=== PATIENT | male | born 1975 | race African-American/Black ===

== ENCOUNTER 2020-04-06 14:30 | Day surgery (SDC) | payer OTHER ==
[~2020-04-06] VITALS: Ht 182.9 cm; Wt 90.8 kg
[~2020-04-06 14:30] MED LIST: ALPR0.25 PO; B12; CHOL10003 PO; IMIP50TA3 PO; OMEP-110 PO; SILD50TA PO
[2020-04-06 14:56] VITALS: BP 117/75
[2020-04-06 15:00] VITALS: BP 117/75
[2020-04-06] MEDS ORDERED: CHLORHEXIDINE 15 ML UDC ONE (15:06)
[2020-04-06] MEDS ORDERED: SODIUM CHLORIDE 0.9% 1,000 ML IV SCH (15:30)
[2020-04-06] MEDS ORDERED: CHLORHEXIDINE 15 ML UDC MM ONE (15:30)
[2020-04-06] MEDS ORDERED: LACTATED RINGERS 1,000 ML IV SCH (15:30)
[2020-04-06] MEDS ORDERED: MIDAZOLAM 1 MG/ML, 2ML ONE (16:01)
[2020-04-06] MEDS ORDERED: FENTANYL PF 100 MCG/2ML ONE ×2 (16:01→17:43)
[2020-04-06] MEDS ORDERED: LIDOCAINE/PF 1%, 30ML ONE (16:17)
[2020-04-06] MEDS ORDERED: BUPIVACAINE/PF 0.5% ONE (16:17)
[2020-04-06] MEDS ORDERED: FENTANYL PF 100 MCG/2ML IV PRN (16:30)
[2020-04-06] MEDS ORDERED: ALBUTEROL SULFATE 2.5 MG/3 ML NPPB PRN (16:30)
[2020-04-06] MEDS ORDERED: LABETALOL 5MG/ML, 20ML IV PRN (16:30)
[2020-04-06] MEDS ORDERED: MEPERIDINE/PF 25MG/0.5ML IVPush PRN (16:30)
[2020-04-06] MEDS ORDERED: ACETAMINOPHEN 325 MG TABLET PO PRN (16:30)
[2020-04-06] MEDS ORDERED: PROMETHAZINE 25 MG/ML, 1ML IVPush PRN (16:30)
[2020-04-06] MEDS ORDERED: OXYcodone 5 MG/5 ML ORAL.SOL UDC PO PRN (16:30)
[2020-04-06] MEDS ORDERED: LORazepam 2 MG/ML, 1ML IVPush PRN (16:30)
[2020-04-06] MEDS ORDERED: HYDROmorphone 1 MG/ML, 1ML INJ IVPush PRN (16:30)
[2020-04-06] MEDS ORDERED: EPINEPHRINE 1 MG/ML, 1ML INFIL ONE (16:49)
[2020-04-06] MEDS ORDERED: DEXAMETHASONE 4 MG/ML, 1ML ONE (16:50)
[2020-04-06] MEDS ORDERED: ONDANSETRON 2MG/ML, 2ML ONE (16:50)
[2020-04-06] MEDS ORDERED: PROPOFOL 10 MG/ML, 20ML ONE (16:50)
[2020-04-06] MEDS ORDERED: LIDOCAINE-MPF 2% ,5ML ONE (16:50)
[2020-04-06] MEDS ORDERED: KETOROLAC 30 MG/1 ML ONE (16:50)
[2020-04-06] MEDS ORDERED: CEFAZOLIN 1,000 MG ONE (16:50)
[2020-04-06] MEDS ORDERED: OXYcodone 5 MG/5 ML ORAL.SOL UDC ONE ×2 (17:43→17:47)
[2020-04-06] MEDS ORDERED: ACETAMINOPHEN 650 MG/20.3 ML UDC ONE (17:43)
[2020-04-06] MEDS ORDERED: OXYC5CAP2 PO (18:29)
[2020-04-06] MEDS ORDERED: IMIPRAMINE HCL 50 MG PO SCH (21:00)
[2020-04-07] MEDS ORDERED: OMEPRAZOLE 20 MG CAPSULE.DR PO SCH (09:00)
[2020-04-07] MEDS ORDERED: CHOLECALCIFEROL 1,000 UNIT TABLET PO SCH (09:00)
== END 2020-04-06 19:10 | disposition home or self-care (01) ==
LOC: OUT 14:30
PROVIDERS: ATTEND Orthopaedic Surgery
DX: S83.272A Complex tear of lateral meniscus, current injury, left knee, initial encounter (principal); S83.232A Complex tear of medial meniscus, current injury, left knee, initial encounter; M22.42 Chondromalacia patellae, left knee; M21.162 Varus deformity, not elsewhere classified, left knee; M25.762 Osteophyte, left knee; K21.9 Gastro-esophageal reflux disease without esophagitis; G47.33 Obstructive sleep apnea (adult) (pediatric); G43.909 Migraine, unspecified, not intractable, without status migrainosus; F32.9 Major depressive disorder, single episode, unspecified; Z79.899 Other long term (current) drug therapy; Z86.718 Personal history of other venous thrombosis and embolism; Z88.0 Allergy status to penicillin; X58.XXXA Exposure to other specified factors, initial encounter; Y93.89 Activity, other specified; Y92.89 Other specified places as the place of occurrence of the external cause; Y99.8 Other external cause status
CPT/HCPCS: 29880; 87635; J0171; J0690; J1100; J1885; J2250; J2405; J2704; J3010; J7120